=== PATIENT | female | born 1955 | race African-American/Black ===

== ENCOUNTER 2019-10-17 17:46 | Emergency (ER) | payer OTHER ==
[2019-10-17] MEDS ORDERED: IBUPROFEN 600 MG TABLET (FP) PO ONE ×2 (17:53→18:01)
--- NOTE | 2019-10-17 17:53 | PDOC ---
Rapid Medical Evaluation Time Seen by Provider: 10/17/19 17:50 Medical Evaluation: 10/17/19 17:50 I have performed a brief in-person evaluation of this patient. CC: lower back pain x3 months; Left arm shooting pain x2 days PE: No focal findings. Orders: motrin Patient to proceed to ED for further evaluation. Discharge Disposition - Diagnosis Lower back pain - Referrals - Patient Instructions - Post Discharge Activity
[2019-10-17 17:54] VITALS: BP 122/73; PULSE 62; TEMP 98; BMI 26.9
--- NOTE | 2019-10-17 18:15 | PDOC ---
History of Present Illness - General Chief Complaint: Pain Stated Complaint: BACK PAIN Time Seen by Provider: 10/17/19 17:50 History Source: Patient - History of Present Illness Occurred: reports: other Severity: reports: moderate Pain Location: reports: back Past History - Medical History Allergies/Adverse Reactions: Allergies Allergy/AdvReac Type Severity Reaction Status Date / Time codeine Allergy Verified 10/17/19 17:54 cyclobenzaprine Allergy Verified 10/17/19 17:53 [From Flexeril] Penicillins Allergy Verified 10/17/19 17:54 Home Medications: Ambulatory Orders Naproxen 500 mg PO BID #30 tablet 10/17/19 COPD: No - Psycho-Social/Smoking History Smoking History: Current every day smoker Information on smoking cessation initiated: No - Substance Abuse Hx (Audit-C & DAST Scrn) How often the patient has a drink containing alcohol: 2-4 times / month Score: In Men: 4 or > Positive; In Women: 3 or > Positive: 2 Screen Result (Pos requires Nsg. Audit-10AR): Negative Review of Systems - Review of Systems Constitutional: No: Chills, Fever, Unexplained wgt Loss ABD/GI: No: Nausea, Vomiting : No: Dysuria, Flank Pain, Hematuria Musculoskeletal: Yes: Back Pain Neurological: No: Numbness, Tingling, Weakness *Physical Exam - Vital Signs Last Vital Signs Temp Pulse Resp BP Pulse Ox 98 F 62 18 122/73 97 10/17/19 17:50 10/17/19 17:50 10/17/19 17:50 10/17/19 17:50 10/17/19 17:50 - Physical Exam 10/17/19 18:19 ambulating into ED General Appearance: Yes: Appropriately Dressed, Mild Distress HEENT: positive: Normal Voice Neck: positive: Supple Respiratory/Chest: negative: Respiratory Distress Gastrointestinal/Abdominal: positive: Soft. negative: Tender, Pulsatile Mass, Distended, Guarding Musculoskeletal: negative: CVA Tenderness Integumentary: positive: Dry, Warm Neurologic: positive: Fully Oriented, Alert, Normal Mood/Affect, Motor Strength 5/5 ED Treatment Course - Medications Given in the ED: ED Medications Discontinued Medications Generic Name Dose Route Start Last Admin Trade Name Freq PRN Reason Stop Dose Admin Ibuprofen 600 mg 10/17/19 17:53 10/17/19 18:06 Motrin - PO 10/17/19 17:54 600 mg ONCE ONE Administration Medical Decision Making - Medical Decision Making 10/17/19 18:10 63 y F, endorses h/o chronic LBP w/ herniated discs on remote MRI, s/p PT in the past, currently takes flexeril as neded, here w/ her usual lower back pain x 3 months. Pain achy, 09/27, does not radiate. No sensory changes, LE weakness, B/B incontinence or saddle anesthesia. No sxs, n/v/f/c. Seen at [facility] for same 2 months ago and prescribed flexeril which is not relieving pain now. No unexplained weight loss see exam Chronic back pain Reports herniated disc to LS spine on MRI remotely Non-compliant w/ f/u Taking flexeril only w/ no relief No red flags today Dose of pain meds in ED Dc w/ pain control and refer to spinal specialist Discharge - Discharge Information Problems reviewed: Yes Clinical Impression/Diagnosis: Chronic back pain Qualifiers: Back pain location: low back pain Back pain laterality: unspecified Sciatica presence: without sciatica Qualified Code(s): M54.5 - Low back pain; G89.29 - Other chronic pain Condition: Good Disposition: HOME - Additional Discharge Information Prescriptions: Naproxen 500 mg PO BID #30 tablet - Follow up/Referral Referrals: Art Lopez MD [Primary Care Provider] - - Patient Discharge Instructions Patient Printed Discharge Instructions: Low Back Pain Additional Instructions: Take medication as directed and follow up with your spinal specialist for further evaluation and management - Post Discharge Activity
== END 2019-10-17 18:18 | disposition home or self-care (01) ==
LOC: JERFT 17:46
DX: M54.5 Low back pain (principal); G89.29 Other chronic pain
CPT/HCPCS: 99283-25

== ENCOUNTER 2020-03-26 12:00 | Emergency (ER) | payer OTHER ==
[2020-03-26 12:55] VITALS: BMI 26.6
[2020-03-26] MEDS ORDERED: SODIUM CHLORIDE 0.9% 500 ML INFUS.BAG IV ONE (13:05)
[2020-03-26] MEDS ORDERED: KETOROLAC TROMETHAMINE 30 MG/1 ML VIAL IVPUSH ONE (13:06)
[2020-03-26] MEDS ORDERED: LIDOCAINE 5% TOPICAL PATCH TP ONE (13:28)
[2020-03-26] MEDS ORDERED: LIDOCAINE 5% TOPICAL PATCH ONE (14:53)
[2020-03-26] MEDS ORDERED: KETOROLAC TROMETHAMINE 30 MG/1 ML VIAL ONE (14:53)
[2020-03-26 16:16] LABS: BASO % 0.2 % (0-2.0); EOS % 0.5 % (0-4.5); HEMATOCRIT 34.3 % (32.4-45.2); LYMPH % 35.4 % (8-40); MCH 25.5 pg (25.7-33.7); MCHC 32.2 g/dl (32.0-36.0); MEAN CELL VOLUME 79.2 fl (80-96); MEAN PLT VOLUME 9.6 fl (7.5-11.1); MONO % 16.1 % (3.8-10.2); NEUT % 47.8 % (42.8-82.8); PLATELET COUNT 157 K/MM3 (134-434); RBC 4.32 M/mm3 (3.60-5.2); RDW 16.5 % (11.6-15.6); WHITE BLOOD COUNT 5.1 K/mm3 (4.0-10.0)
[2020-03-26 16:43] LABS: ALBUMIN 2.6 g/dl (3.4-5.0); BLOOD UREA NITROGEN 7.9 mg/dL (7-18); CALCIUM 10.9 mg/dL (8.5-10.1)
[2020-03-26 16:46] LABS: CREATININE 0.9 mg/dL (0.55-1.3)
[2020-03-26 16:48] LABS: BILIRUBIN,TOTAL 1.1 mg/dL (0.2-1); TOT PROT 9.6 g/dl (6.4-8.2)
[2020-03-26 18:52] LABS: EPI CELLS 24 /uL (0-25.1); HYALINE CASTS 13 /uL (0-3.1); PH,URINE 6.5 (5.0-8.0); URINE APPEARANCE TURBID; URINE BACTERIA 672 /uL (0-1359); URINE BILIRUBIN NEGATIVE (NEGATIVE); URINE COLOR YELLOW; URINE GLUCOSE (UA) NEGATIVE (NEGATIVE); URINE KETONE NEGATIVE (NEGATIVE); URINE LEUK ESTERASE 2+ (NEGATIVE); URINE NITRITE NEGATIVE (NEGATIVE); URINE PROTEIN NEGATIVE (NEGATIVE); URINE RBC 49 /uL (0-23.9); URINE WBC 232 /uL (0-25.8)
[2020-03-26 20:01] VITALS: BP 122/64; PULSE 58; TEMP 98
[2020-03-26] MEDS ORDERED: LIDOCAINE PATCH REMOVAL MC ONE (22:00)
== END 2020-03-26 19:58 | disposition home or self-care (01) ==
LOC: JER 12:00
PROC: 3E0333Z Introduction of Anti-inflammatory into Peripheral Vein, Percutaneous Approach (ICD-10-PCS; principal; 2020-03-26)
DX: M54.5 Low back pain (principal); G89.29 Other chronic pain
CPT/HCPCS: 36415; 71046-TC-FY; 72100-TC-FY; 80053; 81003; 85025; 87086; 99284-25

== ENCOUNTER 2020-06-05 20:01 | Emergency (ER) | payer OTHER ==
[2020-06-05 20:43] VITALS: BMI 21.6
[2020-06-05] MEDS ORDERED: ACETAMINOPHEN 1000 MG/100 ML VIAL (NON FORMULARY) IVPB ONE (20:53)
[2020-06-05] MEDS ORDERED: SODIUM CHLORIDE 0.9% 1000 ML INFUS.BAG IV ONE (20:53)
[2020-06-05] MEDS ORDERED: diazePAM 2 MG TABLET PO ONE (21:06)
[2020-06-05] MEDS ORDERED: LIDOCAINE 5% TOPICAL PATCH TP ONE (21:07)
[2020-06-05] MEDS ORDERED: diazePAM 2 MG TABLET ONE (21:18)
[2020-06-05] MEDS ORDERED: ACETAMINOPHEN INJECTION 100 ML IVPB ONE (21:18)
[2020-06-05] MEDS ORDERED: LIDOCAINE 5% TOPICAL PATCH ONE (21:18)
[2020-06-05] MEDS ORDERED: LIDOCAINE PATCH REMOVAL MC ONE (22:00)
[2020-06-05 22:09] LABS: BASO % 0.2 % (0-2.0); EOS % 0.2 % (0-4.5); HEMATOCRIT 27.7 % (32.4-45.2); LYMPH % 33.9 % (8-40); MCH 25.3 pg (25.7-33.7); MCHC 32.4 g/dl (32.0-36.0); MEAN PLT VOLUME 8.7 fl (7.5-11.1); MONO % 13.9 % (3.8-10.2); NEUT % 51.8 % (42.8-82.8); PLATELET COUNT 172 K/MM3 (134-434); RBC 3.56 M/mm3 (3.60-5.2); RDW 20.8 % (11.6-15.6); WHITE BLOOD COUNT 5.5 K/mm3 (4.0-10.0)
[2020-06-05 22:21] LABS: INR 1.29 (0.83-1.09); PROTHROMBIN TIME (PATIENT) 15.5 SEC (9.7-13.0)
[2020-06-05 22:24] LABS: ACTIVATED PTT 34.7 SECONDS (25.2-36.5)
[2020-06-05 22:42] LABS: ANISOCYTOSIS 2+; CHLORIDE 104 mmol/L (98-107); MACROCYTOSIS 0; PLATELET ESTIMATE NORMAL; POTASSIUM 3.8 mmol/L (3.5-5.1); SODIUM 137 mmol/L (136-145); TARGET CELLS 1+
[2020-06-05 22:44] LABS: ALBUMIN 2.6 g/dl (3.4-5.0); ANION GAP 7 MMOL/L (8-16); CALCIUM 10.7 mg/dL (8.5-10.1); CO2 26 mmol/L (21-32)
[2020-06-05 22:45] LABS: GLUCOSE,RANDOM 89 mg/dL (74-106)
[2020-06-05 22:47] LABS: SGPT/ALT 12 U/L (13-61)
[2020-06-05 22:48] LABS: CREATININE 0.8 mg/dL (0.55-1.3)
[2020-06-05 22:50] LABS: ALK PHOS 86 U/L (45-117)
[2020-06-05 23:03] VITALS: BP 129/72; PULSE 65; TEMP 98.8
[2020-06-05 23:04] LABS: SGOT/AST 33 U/L (15-37)
[2020-06-05 23:10] LABS: ERYTHROCYTE SEDIMENTATION RATE 107 mm/hr (0-30)
[2020-06-05 23:14] LABS: EPI CELLS 18 /uL (0-25.1); HYALINE CASTS 2 /uL (0-3.1); PH,URINE 7.5 (5.0-8.0); URINE APPEARANCE TURBID; URINE BACTERIA 231 /uL (0-1359); URINE BILIRUBIN NEGATIVE (NEGATIVE); URINE COLOR YELLOW; URINE GLUCOSE (UA) NEGATIVE (NEGATIVE); URINE KETONE NEGATIVE (NEGATIVE); URINE LEUK ESTERASE TRACE (NEGATIVE); URINE NITRITE NEGATIVE (NEGATIVE); URINE PROTEIN NEGATIVE (NEGATIVE); URINE RBC 26 /uL (0-23.9); URINE WBC 40 /uL (0-25.8)
[2020-06-06] MEDS ORDERED: IBUPROFEN 600 MG TABLET (FP) PO ONE (00:38)
== END 2020-06-06 01:35 | disposition short-term general hospital (02) ==
LOC: JER 20:01
PROC: 3E033NZ Introduction of Analgesics, Hypnotics, Sedatives into Peripheral Vein, Percutaneous Approach (ICD-10-PCS; principal; 2020-06-05)
DX: M54.9 Dorsalgia, unspecified (principal); R50.9 Fever, unspecified; M89.9 Disorder of bone, unspecified
CPT/HCPCS: 36415; 71045-TC-FY; 72131-TC; 80053; 81003; 84443; 84484; 85025; 85610; 85651; 85730; 86140; 87040; 87086; 87804; 93005; 93010; 99285-25; C9803; J0131; U0003

== ENCOUNTER 2020-09-07 15:38 | Emergency (ER) | payer OTHER ==
[2020-09-07 16:01] VITALS: BMI 27.4
[2020-09-07] MEDS ORDERED: oxyCODONE HCL 5 MG TABLET PO ONE (16:24)
[2020-09-07] MEDS ORDERED: SODIUM CHLORIDE 0.9% 500 ML INFUS.BAG IV ONE (16:26)
[2020-09-07] MEDS ORDERED: ONDANSETRON 4 MG/2 ML VIAL IVPUSH ONE (16:26)
[2020-09-07] MEDS ORDERED: oxyCODONE HCL 5 MG TABLET ONE (16:54)
[2020-09-07] MEDS ORDERED: ONDANSETRON 4 MG/2 ML VIAL ONE (16:55)
[2020-09-07 17:24] LABS: BASO % 0.3 % (0-2.0); EOS % 1.5 % (0-4.5); HEMATOCRIT 26.7 % (32.4-45.2); HEMOGLOBIN 8.3 GM/dL (10.7-15.3); LYMPH % 14.5 % (8-40); MCH 23.3 pg (25.7-33.7); MCHC 31.1 g/dl (32.0-36.0); MEAN CELL VOLUME 74.9 fl (80-96); MEAN PLT VOLUME 7.9 fl (7.5-11.1); NEUT % 59.7 % (42.8-82.8); PLATELET COUNT 183 10^3/uL (134-434); RBC 3.57 M/mm3 (3.60-5.2); WHITE BLOOD COUNT 3.9 K/mm3 (4.0-10.0)
[2020-09-07 17:27] LABS: INR 1.17 (0.83-1.09); PROTHROMBIN TIME (PATIENT) 14.1 SEC (9.7-13.0)
[2020-09-07 17:30] LABS: ACTIVATED PTT 28.4 SECONDS (25.2-36.5)
[2020-09-07 17:35] LABS: CHLORIDE 109 mmol/L (98-107); SODIUM 140 mmol/L (136-145)
[2020-09-07 17:37] LABS: CALCIUM 8.8 mg/dL (8.5-10.1)
[2020-09-07 17:38] LABS: ALBUMIN 2.4 g/dl (3.4-5.0); ANION GAP 8 MMOL/L (8-16); CO2 23 mmol/L (21-32); GLUCOSE,RANDOM 82 mg/dL (74-106); LIPASE 37 U/L (73-393); MAGNESIUM 2.2 mg/dL (1.8-2.4)
[2020-09-07 17:41] LABS: CREATININE 0.7 mg/dL (0.55-1.3); PHOSPHOROUS 3.3 mg/dL (2.5-4.9); SGOT/AST 60 U/L (15-37); SGPT/ALT 24 U/L (13-61)
[2020-09-07 17:43] LABS: LACTIC ACID 2.1 mmol/L (0.4-2.0)
[2020-09-07 17:44] LABS: ALK PHOS 82 U/L (45-117)
[2020-09-07 18:06] LABS: BILIRUBIN,TOTAL 0.7 mg/dL (0.2-1)
[2020-09-07 18:09] LABS: ANISOCYTOSIS 2+; MACROCYTOSIS 0; PLATELET ESTIMATE NORMAL; TARGET CELLS 1+; TEAR DROP CELLS 1+
[2020-09-07 18:52] LABS: EPI CELLS 27 /uL (0-25.1); HYALINE CASTS 0 /uL (0-3.1); URINE APPEARANCE CLEAR; URINE BACTERIA 354 /uL (0-1359); URINE BILIRUBIN NEGATIVE (NEGATIVE); URINE COLOR DK YELLOW; URINE GLUCOSE (UA) NEGATIVE (NEGATIVE); URINE KETONE NEGATIVE (NEGATIVE); URINE LEUK ESTERASE TRACE (NEGATIVE); URINE NITRITE NEGATIVE (NEGATIVE); URINE PROTEIN NEGATIVE (NEGATIVE); URINE RBC 97 /uL (0-23.9); URINE WBC 43 /uL (0-25.8)
[2020-09-07 22:14] VITALS: BP 114/56; PULSE 76; TEMP 98.2
== END 2020-09-07 22:46 | disposition short-term general hospital (02) ==
LOC: JER 15:38
PROC: 3E033GC Introduction of Other Therapeutic Substance into Peripheral Vein, Percutaneous Approach (ICD-10-PCS; principal; 2020-09-07)
DX: R10.31 Right lower quadrant pain (principal); C90.00 Multiple myeloma not having achieved remission; R22.42 Localized swelling, mass and lump, left lower limb; C79.31 Secondary malignant neoplasm of brain; R19.09 Other intra-abdominal and pelvic swelling, mass and lump
CPT/HCPCS: 36415; 70450-TC; 74177-TC; 80053; 81003; 82550; 83605; 83690; 83735; 84100; 84484; 85025; 85610; 85730; 86900; 87086; 93005; 93010; 93971-TC; 99285-25; C9803; Q9967; U0003; U0005

== ENCOUNTER 2021-04-30 05:28 | Emergency (ER) | payer OTHER ==
[2021-04-30 05:57] VITALS: BMI 18.3
[2021-04-30] MEDS ORDERED: oxyCODONE HCL 5 MG TABLET PO ONE (06:11)
[2021-04-30 06:28] LABS: HEMATOCRIT 26.5 % (32.4-45.2); HEMOGLOBIN 8.3 GM/dL (10.7-15.3); MCH 24.8 pg (25.7-33.7); MCHC 31.2 g/dl (32.0-36.0); MEAN CELL VOLUME 79.5 fl (80-96); MEAN PLT VOLUME 8.1 fl (7.5-11.1); PLATELET COUNT 195 10^3/uL (134-434); RBC 3.33 M/mm3 (3.60-5.2); RDW 17.6 % (11.6-15.6)
[2021-04-30 06:31] LABS: WHITE BLOOD COUNT 34.4 K/mm3 (4.0-10.0)
[2021-04-30 06:47] LABS: INR 1.17 (0.83-1.09); PROTHROMBIN TIME (PATIENT) 13.5 SEC (9.7-13.0)
[2021-04-30 06:49] LABS: BLOOD UREA NITROGEN 13.6 mg/dL (7-18); CALCIUM 9.2 mg/dL (8.5-10.1)
[2021-04-30 06:50] LABS: ACTIVATED PTT 29.9 SECONDS (25.2-36.5); ALBUMIN 2.7 g/dl (3.4-5.0)
[2021-04-30 06:52] LABS: CREATININE 1.1 mg/dL (0.55-1.3)
[2021-04-30 06:54] LABS: BILIRUBIN,TOTAL 0.5 mg/dL (0.2-1); TOT PROT 6.3 g/dl (6.4-8.2)
[2021-04-30 10:26] LABS: ANISOCYTOSIS 0; HELMET CELLS 0; HOWELL-JOLLY BODIES 0; MACROCYTOSIS 0; OVALOCYTE 0; PLATELET ESTIMATE NORMAL; ROULEAU 0; SICKELED CELLS 0; TARGET CELLS 0; TEAR DROP CELLS 0; TOXIC GRANULATION 0
[2021-04-30 10:45] VITALS: BP 97/56; PULSE 89; TEMP 98.5
== END 2021-04-30 10:58 | disposition short-term general hospital (02) ==
LOC: JER 05:28
DX: C90.00 Multiple myeloma not having achieved remission (principal); C79.31 Secondary malignant neoplasm of brain
CPT/HCPCS: 36415; 71045-TC-FY; 73610-TC-RT-FY; 73630-TC-RT-FY; 80053; 84484; 85025; 85610; 85730; 86850; 86900; 86901; 93005; 93010; 99285-25; C9803; U0003; U0005